=== PATIENT | male | born 1980 | race Caucasian/White ===

== ENCOUNTER 2019-04-24 08:04 | Outpatient (RCR) | payer OTHER ==
[2019-06-26] MEDS ORDERED: LEXAPRO 10MG10 MG PO (06:15)
[2019-06-26] MEDS ORDERED: ATARAX 25MG25 MG/TAB PO (06:16)
[2019-06-26] MEDS ORDERED: PERCOCET 325 MG1 TA2 PO (08:50)
== END 2019-07-23 | disposition home or self-care (01) ==
LOC: WSOH
DX: F32.9 Major depressive disorder, single episode, unspecified (principal); M79.674 Pain in right toe(s); Y99.0 Civilian activity done for income or pay

== ENCOUNTER 2019-06-26 05:29 | Day surgery (SDC) | payer BC ==
[~2019-06-26] VITALS: Ht 175.3 cm; Wt 85.3 kg
[2019-06-26 06:13] VITALS: BP 110/65; PULSE 53; TEMP 97.9
[2019-06-26] MEDS ORDERED: LEXAPRO 10MG10 MG PO (06:15)
[2019-06-26] MEDS ORDERED: ATARAX 25MG25 MG/TAB PO (06:16)
[2019-06-26 08:29] VITALS: BP 103/62; PULSE 56
--- NOTE | 2019-06-26 08:29 | NUR ---
Patient returns to room 8 per cart from surgery accompanied by Kim GONZALEZ and Earline RN. Awake and alert. Right foot dressing dry and intact with post-op shoe on. Foot of cart elevated. Temp 97.9 and room air sats 98%. Dr. Hwang here and spouse in room.
[2019-06-26 08:44] VITALS: BP 98/60; PULSE 60
--- NOTE | 2019-06-26 08:44 | NUR ---
Eating muffin and drinking water. Room air sats 98%. Spouse in room. Denies pain or nausea.
[2019-06-26] MEDS ORDERED: PERCOCET 325 MG1 TA2 PO (08:50)
[2019-06-26 08:59] VITALS: BP 98/74; PULSE 50
--- NOTE | 2019-06-26 08:59 | NUR ---
Tolerated muffin and water. Denies pain or nausea. States is ready to go home.
--- NOTE | 2019-06-26 09:05 | NUR ---
IV discontinued and site is free of redness. Patient dresses self. Post op shoe maintained on the right foot.
--- NOTE | 2019-06-26 09:15 | NUR ---
Given dismissal instructions and voices understanding of these. Provided script for Percocet from Dr. Hwang. Instructed to folllow instructions from handout given by Dr. Hwang.
--- NOTE | 2019-06-26 09:21 | NUR ---
Patient dismissed to home per private vehicle driven by spouse and taken to the front door per wheelchair by this RN and assisted into car with dismissal instructions in hand.
== END 2019-06-26 09:21 | disposition home or self-care (01) ==
LOC: SDCO 05:29
DX: M20.11 Hallux valgus (acquired), right foot (principal); M21.611 Bunion of right foot; E78.5 Hyperlipidemia, unspecified; B00.9 Herpesviral infection, unspecified; L29.8 Other pruritus; B37.49 Other urogenital candidiasis; F32.9 Major depressive disorder, single episode, unspecified; F41.9 Anxiety disorder, unspecified
CPT/HCPCS: J0690; J1100; J2250; J2704; J7120